=== PATIENT | female | born 1935 | race Caucasian/White ===

== ENCOUNTER 2017-01-18 12:00 | Inpatient (IN) | payer MEDICARE, OTHER ==
[~2017-01-18] VITALS: Ht 152.4 cm; Wt 110.7 kg
--- NOTE | ~2017-01-18 | HP ---
PATIENT'S NAME: ROSARIO DELGADO [facility] AGE: 81 Y [address] ROOM: [place] [id number] [facility] ADMIT DATE: 01/18/2017 History & Physical DISCHARGE DATE: FAMILY PHYSICIAN: JO COTO MD ATTENDING PHYSICIAN: Alexx EVANS DATE OF SERVICE: CHIEF COMPLAINT: Fever and cough. HISTORY OF PRESENT ILLNESS: The patient is an 81-year-old female with past medical history of type 2 diabetes mellitus, obesity, hypertension, diabetic neuropathy, and diastolic heart failure, who presents here from an Urgent Care with community-acquired pneumonia. The patient is currently living in an assisted living and has had some productive cough with yellow sputum and fever. At the urgent Care, the patient was found to have a temperature of 101, and a chest x-ray showing left lower lung field infiltrate. The patient was found to be somewhat confused and was sent here for further treatment. The patient reports that for the past few weeks, she has been feeling fatigued, short shortness of breath, productive cough, and fever and chills. The patient denies chest pain, nausea, vomiting, abdominal pain, diarrhea, skin lesions, tarry stool, and headache. The patient reports that she is somewhat compliant and reports that she misses a few of her medications here and there. The patient lives in assisted living at [place] and follows Dr. Coto as an outpatient. MEDICAL HISTORY: Diabetes mellitus, obesity, hypertension, diabetic neuropathy, diastolic heart failure. SURGICAL HISTORY: Hysterectomy. FAMILY HISTORY: Reports that father and mother of old age. SOCIAL HISTORY: Denies smoking. Denies use of alcohol. MEDICATION LIST: See MAR. REVIEW OF SYSTEMS: All systems have been reviewed and are negative except for what is mentioned PATIENT'S NAME: ROSARIO DELGADO [facility] AGE: 81 Y [address] ROOM: [address] [address] LOCATION: [facility]PCU ADMIT DATE: 01/18/2017 History & Physical DISCHARGE DATE: FAMILY PHYSICIAN: JO COTO MD ATTENDING PHYSICIAN: Alexx EVANS in the [facility]. PHYSICAL EXAMINATION: VITAL SIGNS: Temperature of 98.5, blood pressure of 109/59, pulse of 73, respiratory rate of 18, saturating 95% on 2 L. HEAD: Normocephalic, atraumatic. EYES: Sclerae non-icterus. EARS: No ear discharge. NOSE: No nasal discharge. THROAT: Oral mucosa moist. NECK: Mild JVD. CHEST: Mild bibasilar rales and mild wheezing. HEART: Regular rate and rhythm. No murmurs, rubs, or gallops. ABDOMEN: Soft, nontender, and nondistended. Bowel sounds present. EXTREMITIES: Lower extremity +2 pitting edema. NEUROLOGIC: Alert and oriented x1. The patient is not oriented to time. Motor and sensory grossly intact. SKIN: Warm to touch. LABORATORY DATA: Lactate 1.4. Blood glucose of 158. ProBNP of 1687. Troponin x1 negative. White blood cell count of 17.2. Initial creatinine is 1.9; BUN of 51; potassium of 6.1 with sodium of 134, repeat potassium 5.1. Hemoglobin A1c of 7.8. Urinalysis shows pyuria with white blood cell count of 5 to 10. Procalcitonin level is within normal limits. IMAGING DATA: Chest x-ray shows possible lower lung field infiltrate. EKG shows normal sinus rhythm. ST changes suspicious for ST-elevation VT on inferior leads. ASSESSMENT AND PLAN: The patient is an 81-year-old female with past medical history of diabetes type 2, obesity, diastolic heart failure, and hypertension, who presents here with community-acquired pneumonia with CURB of 3 with age, confusion, and BUN and hyperkalemia and EKG concerning for an ST-elevation myocardial infarction compared to last. 1. Community-acquired pneumonia. The patient is currently on azithromycin and ceftriaxone. Blood culture is pending. Urine and strep Legionella are pending. Sputum culture is pending. 2. Hyperkalemia, etiology most likely secondary to acute kidney injury. We PATIENT'S NAME: ROSARIO DELGADO [facility] AGE: 81 Y [address] ROOM: [id number] [place] [id number] [facility]: [facility] ADMIT DATE: 01/18/2017 History & Physical DISCHARGE DATE: FAMILY PHYSICIAN: JO COTO MD ATTENDING PHYSICIAN: Alexx EVANS are holding the patient's MITESH inhibitor. Potassium was 6.1 initially. EKG did not show any potassium-induced EKG changes. The patient got calcium gluconate x1, insulin, and D50. The patient received Lasix 40 mg IV. Repeat potassium is 5.1. We will continue with Lasix 40 mg b.i.d. Repeat renal function panel tomorrow morning. 3. Acute kidney injury. Etiology most likely cardiorenal secondary to decompensated diastolic heart failure. We will treat underlying etiology. 4. Decompensated diastolic heart failure. Etiology most likely secondary to noncompliance with medication and fluid restriction. The patient is currently on 40 mg IV b.i.d. The patient's symptoms somewhat improved after 1 dose of IV Lasix. With strict I's and O's, no salt diet, we will follow clinically. 5. EKG abnormality. EKG that was done when potassium was found to be elevated shows ST changes concerning for ST-elevation myocardial infarction. The patient denies any chest pain. Troponin x1 is negative. Case was disease discussed with Dr. Ireland. The old EKG and our current EKG were sent to Dr. Ireland. No suspicious for ST-elevation myocardial infarction at this point. We will follow the patient clinically with troponin and serial EKGs. The patient is currently asymptomatic and denies any chest pain. 6. Diabetes mellitus. We will continue home medication. 7. Obesity. Ongoing. MD JENNIFER GUDINO/ty /[id number] D: [id number] T: [id number] HISTORY & PHYSICAL
--- NOTE | ~2017-01-18 | DS ---
PATIENT'S NAME: ROSARIO DELGADO [facility] AGE: 81 Y [address] ROOM: [id number] [place], [place] [address] LOCATION: GPCU ADMIT DATE: 01/18/2017 Discharge Summary DISCHARGE DATE: 01/20/2017 FAMILY PHYSICIAN: Talha Biggs MD ATTENDING PHYSICIAN: Max Coffey PRIMARY DIAGNOSIS: 1. Left lower lobe pneumonia. OTHER PRIMARY DIAGNOSIS: 1. Acute hypoxic respiratory failure. CHRONIC DIAGNOSES: 1. Nocturnal hypoxemia. 2. Diabetes type 2. 3. Acute on chronic diastolic heart failure. 4. Anemia of chronic kidney disease. PRINCIPAL PROCEDURES: Done for the patient, none was indicated. LABORATORY DATA: On admission, lactic acid was 1.4. Cardiac enzymes, multiple sets were less than 0.040. Highest level of CPK obtained was 436. WBC on admission was 17.2, prior to discharge was 11.2; H and H on admission were 9.4 and 29.5, prior to discharge were 8.4 and 26.5; platelet on admission was 235, was stable throughout the hospital stay. On admission, the patient's creatinine was 1.9, prior to discharge was 1.8. Sodium on admission was 134, prior to discharge was 137; potassium on admission was 6.1, prior to discharge was 4.9; chloride on admission was 100, was stable throughout the hospital stay; bicarb on admission was 26, prior to discharge was 28; BUN on admission was 51, prior to discharge was stable at 51. Liver function tests were within normal limit. Magnesium was 2.1. Albumin was 2.9. Hemoglobin A1c 7.8. UA: Leukocytes 100, nitrite negative, wbc 5-10, bacteria few. Procalcitonin was 0.07. MICROBIOLOGY DATA: Blood cultures, no growth till discharge. Urine culture, no growth after one day. RADIOLOGY DATA: Chest x-ray is reported as patchy left basilar opacities, probably scar, no definitive pneumonia. HOSPITAL COURSE: For history of present illness, please take a look at the H and P, which was done by Dr. Santana. The patient was admitted to progressive care unit, was managed as a case of pneumonia, attributing to her acute hypoxic respiratory failure, but there was also concern for probable acute on chronic diastolic heart failure as well. So, given this, the patient was PATIENT'S NAME: ROSARIO DELGADO [facility] AGE: 81 Y [address] ROOM: [id number] [place], [place] [address] LOCATION: GPCU ADMIT DATE: 01/18/2017 Discharge Summary DISCHARGE DATE: 01/20/2017 FAMILY PHYSICIAN: Talha Biggs MD ATTENDING PHYSICIAN: Max Coffey managed as per the pneumonia order pathway. She was started on Rocephin and Zithromax, which she had for a total of 48 hours during her hospital stay. She was also diuresed. Her Lasix was switched from p.o. to IV same dose, and this was continued throughout her whole hospital stay. During her hospital stay, she did not have a fever. By the next day of the hospital stay, she was successfully weaned off oxygen. However, she did require oxygen at nighttime, which is due to her chronic nocturnal hypoxia. She did also get a Cardiology consult on the day of admission given her minimally elevated troponin. However, after Cardiology evaluated the patient, they recommended nothing to be done now as the patient had refused any cardiac workup in the past, so they signed off. On the day of discharge, the patient had physical therapy work around with the patient, and she did pretty okay, and her vital signs were stable, and so she was discharged back to the assisted living facility. DISCHARGE INSTRUCTIONS: The patient is to follow up with her PCP in the next 4 to 5 days. MEDICATIONS ON DISCHARGE: 1. Aspirin 81 mg p.o. daily. 2. Lipitor 20 mg p.o. q.h.s. 3. Coreg 6.25 mg p.o. twice daily. 4. Colace 100 mg p.o. twice daily. 5. Milk of magnesia 30 mL p.o. daily p.r.n. 6. Fentanyl 12 mcg patch every 72 hours. 7. Flonase 1 to 2 sprays to nose twice daily. 8. Lasix 40 mg p.o. twice daily. 9. Neurontin 300 mg p.o. daily. 10. Neurontin 600 mg p.o. twice daily. 11. Insulin lispro 0-8 units subcutaneous 3 times daily. 12. Insulin lispro 6 units subcutaneous 3 times daily. 13. Insulin detemir 35 units subcu q.h.s. 14. Synthroid 125 mcg p.o. daily. 15. Prilosec 20 mg p.o. daily. 16. MiraLAX 17 g p.o. daily. 17. Levaquin 750 mg p.o. q.48 hours 5 more doses to complete a total of 7 days of antibiotics. 18. Metformin 1 g p.o. twice daily. 19. Tramadol 50 mg p.o. q.8 hours p.r.n. 20. Tylenol 650 mg p.o. q.4 hours p.r.n. 21. Nystatin topical. 22. Artificial tears one drop 3 times daily. 23. Cofsils one lozenges p.o. p.r.n. 24. Imodium 4 mg p.o. one time daily p.r.n. 25. Robitussin 10 mL p.o. every 4 hours p.r.n. 26. DuoNeb 1 amp every 4 hours p.r.n. PATIENT'S NAME: ROSARIO DELGADO [facility] AGE: 81 Y [address] ROOM: [place] [address] [facility] ADMIT DATE: 01/18/2017 Discharge Summary DISCHARGE DATE: 01/20/2017 FAMILY PHYSICIAN: Talha Biggs MD ATTENDING PHYSICIAN: Max Coffey 27. Colace 100 mg p.o. daily. 28. Benzonatate 200 mg p.o. 3 times daily. 29. Zoloft 25 mg p.o. daily. MD ANTOINETTE MUELLER/ty /[id number] d: 01/20/172349 t: 01/21/17 165, DISCHARGE SUMMARY
[~2017-01-18 12:00] MED LIST: ARTIFICIAL TEAR15 ML OPHTH; ASPIR-LOW81 MG PO; ATORVASTATIN CA20 MG PO; COLACE100 MG PO; COREG6.25 MG PO; COUGH DROPS1 EAC1 PO; DURAGESIC 12 M12 MCG TRANS; GLUCOPHAGE1000 MG PO; GLUCOTROL XL2.5 MG PO; IMODIUM A-D2 MG PO; INVOKANA300 MG PO; LASIX20 MG PO; LASIX40 MG PO; LEVEMIR FL100 UNIT/1 SUB-Q; LEVOTHROID (S125 MCG PO; MILK OF MA400 MG/5 M PO; MYCOSTATIN CREA30 GM TOP; NEURONTIN300 MG PO; NORVASC10 MG PO; NOVOLOG100 UNIT/M SUB-Q; PRILOSEC20 MG PO; PRINIVIL (ZESTR20 MG PO; ROBITUSSIN COU118 ML PO; TYLENOL325 MG PO; ULTRAM50 MG PO
--- NOTE | 2017-01-18 14:02 | NUR ---
Pt is 81 y/o female admit for pneumonia for hospitalist. Pt alert and oriented x3. No allergies. REsides at [facility] living. Hx of DM, neuropathy in legs and feet,htn,sleep apnea-wears CPAP occas,gerd,frequent diarrhea,hypothyroid. Pt has audible wheezing. Came through ED. Desats when talking frequently but returns to upper 90's at rest. Pt pleasant and cooperative with cares.
[2017-01-18] MEDS ORDERED: FLONASE 50 MCG/16 GM NOSE (14:46)
[2017-01-18] MEDS ORDERED: DUONEB INH (14:59)
[2017-01-18] MEDS ORDERED: COZAAR50 MG PO (15:02)
[2017-01-18] MEDS ORDERED: MILK OF MA400 MG/5 M PO (15:04)
[2017-01-18] MEDS ORDERED: NEURONTIN300 MG PO (15:05)
[2017-01-18] MEDS ORDERED: MIRALAX PO527 GM/BOT PO (15:09)
[2017-01-18] MEDS ORDERED: BENZONATATE200 MG PO (15:13)
[2017-01-18] MEDS ORDERED: ZOLOFT50 MG PO (15:16)
[2017-01-18 16:34] LABS: BASOPHIL % 0.2 %; EOSINOPHIL # 0.1 K/uL (0.0-0.5); EOSINOPHIL % 0.5 %; HEMATOCRIT 29.5 % (30.0-46.0); HEMOGLOBIN 9.4 g/dL (10.0-15.0); IMMATURE GRANULOCYTE # 0.2 K/uL (0.0-0.3); IMMATURE GRANULOCYTE % 0.9 %; LYMPHOCYTE # 2.9 K/uL (0.8-4.0); LYMPHOCYTE % 16.7 %; MCH 29.5 pg (27.0-34.0); MCHC 31.9 gm/dL (32.0-36.5); MCV 92.5 fl (83.0-98.0); MONOCYTE # 1.6 K/uL (0.0-1.0); MONOCYTE % 9.3 %; MPV 10.7 fl (9.4-12.4); NEUTROPHIL # (ANC) 12.5 K/uL (1.8-7.8); NEUTROPHIL % 72.4 %; NRBC % 0 /100WBC (0-0.00); PLATELET COUNT 235 K/uL (150-450); RBC 3.19 M/uL (3.00-5.00); RDW-CV 13.6 % (11.9-14.6)
[2017-01-18 16:35] LABS: WBC 17.2 K/uL (4.0-11.0)
[2017-01-18 16:56] LABS: ALBUMIN 2.9 gm/dL (3.5-5.0); ANION GAP 14.1 (10.0-19.0); CALCIUM 8.2 mg/dL (8.5-10.5); CREATININE 1.9 mg/dL (0.5-1.1); POTASSIUM 6.1 mMol/L (3.7-5.1); TOTAL BILIRUBIN 0.7 mg/dL (0.0-1.5); TOTAL PROTEIN 6.9 g/dL (6.0-8.4)
--- NOTE | 2017-01-18 17:50 | NUR ---
Significant Event: ADMITTED TO PCU @ 1300. VSS. DENIES PAIN. UP WITH HEAVY 2 ASSIST, GB AND WALKER TO BS. IV TO RIGHT INNER FA SL'D. IV ANTIBIOTICS GIVEN. LUNGS CLEAR/DIM. LABS PENDING. CONTINUE TO MONITOR. Follow up:
[2017-01-18 23:10] LABS: ALBUMIN 2.6 gm/dL (3.5-5.0); ANION GAP 12.1 (10.0-19.0); CREATININE 1.9 mg/dL (0.5-1.1); PHOSPHORUS 3.3 mg/dL (2.5-4.9)
[2017-01-18 23:14] LABS: POTASSIUM 5.1 mMol/L (3.7-5.1)
[2017-01-18 23:43] LABS: CPK 436 IU/L (21-215)
[2017-01-19 01:01] LABS: BILIRUBIN URINE NEGATIVE (NEGATIVE); BLOOD URINE NEGATIVE /UL (NEGATIVE); COLOR URINE YELLOW (YELLOW); GLUCOSE URINE NEGATIVE (NEGATIVE); KETONE URINE NEGATIVE (NEGATIVE); LEUKOCYTES URINE 100 /UL (NEGATIVE); NITRITE URINE NEGATIVE (NEGATIVE); PROTEIN URINE NEGATIVE (NEGATIVE); TURBIDITY URINE CLEAR (CLEAR); UROBILINOGEN URINE NORMAL (NORMAL)
[2017-01-19 01:07] LABS: BACTERIA URINE FEW (NEGATIVE); RBC URINE NEGATIVE #/HPF (NEGATIVE); RENAL EPITH URINE 0-2 #/HPF (NEGATIVE); WBC CLUMPS URINE FEW (NEGATIVE)
[2017-01-19 03:20] LABS: BASOPHIL # 0.1 K/uL (0.0-0.2); BASOPHIL % 0.4 %; EOSINOPHIL # 0.1 K/uL (0.0-0.5); HEMATOCRIT 28.9 % (30.0-46.0); HEMOGLOBIN 9.1 g/dL (10.0-15.0); IMMATURE GRANULOCYTE # 0.1 K/uL (0.0-0.3); IMMATURE GRANULOCYTE % 0.9 %; LYMPHOCYTE # 2.9 K/uL (0.8-4.0); MCH 29.3 pg (27.0-34.0); MCHC 31.5 gm/dL (32.0-36.5); MCV 92.9 fl (83.0-98.0); MONOCYTE # 1.4 K/uL (0.0-1.0); MONOCYTE % 10.5 %; MPV 10.8 fl (9.4-12.4); NEUTROPHIL % 66.2 %; NRBC % 0 /100WBC (0-0.00); PLATELET COUNT 194 K/uL (150-450); RBC 3.11 M/uL (3.00-5.00); RDW-CV 13.8 % (11.9-14.6); WBC 13.6 K/uL (4.0-11.0)
[2017-01-19 03:38] LABS: ALBUMIN 2.6 gm/dL (3.5-5.0); ANION GAP 13.9 (10.0-19.0); CALCIUM 8.3 mg/dL (8.5-10.5); CREATININE 1.8 mg/dL (0.5-1.1); PHOSPHORUS 4.2 mg/dL (2.5-4.9); POTASSIUM 4.9 mMol/L (3.7-5.1)
[2017-01-19 03:39] LABS: CPK 399 IU/L (21-215)
--- NOTE | 2017-01-19 04:14 | NUR ---
Significant Event: A/0X3. RESTED IN BED ALL OF SHIFT. TURNED Q 2 HRS SIDE TO SIDE. AFEBRILE. VSS ON 1L. DENIES PAIN. IV TO R) FA SL. CONTINUE WITH IV ANTIBIOTICS. PATIENT K ON ADMISSION WAS 6.1. GAVE CALCIUM GLUCONATE IV X1 AND ALSO 10 UNITS REGULAR INSULIN WITH D50 IV. LAST CHECK OF K WAS 4.9. ALSO DID AN EKG THIS EVENING. EKG SHOWED ACUTE ST ELEVATION POSSIBLE RI. PATIENT DENIES CHEST PAIN. ENZYMES WERE FOLLOWED CPK 436, CK-MB 1.0 AND TROPONIN -. CARDIOLOGY CONSULTED. GOING TO DRAW ENZYMES X3 AND EKG THIS AM. GARCÍA PLACED AROUND 1949. HAD 550 OUT. GAVE LASIX IVP THIS EVENING. NO BM THIS SHIFT. Follow up: CONTINUE WITH PLAN OF CARE.
[2017-01-19 09:50] LABS: CPK 329 IU/L (21-215)
--- NOTE | 2017-01-19 15:56 | NUR ---
Reviewed chart, pt 2 person assist to get out of bed to chair. Lives at [facility]. Talked with patient, confirms she lives at [facility]. Says she is able to walk to dining room, dresses herself, gets assistance with bathing. I expressed concern over her weakness and that she can go to SNF and Medicare will cover skilled stay for her to get stronger before going back to [facility] and she refuses, saying she is going back to [facility] on discharge. Put note on chart for doc to order PT/OT for strengthening. Called Andie at [facility] [phone] and discussed the above. She reports pt does not look safe when ambulating with walker, walks hunched clear over it but despite their repeated cuing and working with PT/OT there, that is how she ambulates. Says her room is closest it can be to dining room and has the closest chair/table she can and that is as far as she ambulates there. Does wear loose pajama pants and shirts with no bra and able to dress herself. Incontinent of stool at [facility] due to diabetic meds and supposed to wear briefs but chooses not to when she helps herself or chooses to take them off when staff assist her so she does dribble down her legs and hurries to bathroom when she has to go. Has a rail on her bed and grab bars in the bathroom. Says 4 days prior to admit had a fall but no injury, and not unusual for her to fall because will be incontinent in bathroom and not call for assistance and try to clean it up herself and either slip or fall because of balance when bending over. Says she is stubborn and does what she wants to do despite their offers of assistance and instructing her they want to assist her. Report 24 hours prior to admit she did get weaker and staff was helping her out of bed to wheelchair, so that prompted them to take her in to Urgent Care. Told Andie pt intent is to come back to [facility] on discharge, so if they have concerns about taking her back, they will need to be the ones to tell her she needs a skilled stay before coming back to them, Andie voices understanding. Not sure when will be ready for discharge, if still here Sunday career agent will update them.
--- NOTE | 2017-01-19 16:46 | NUR ---
Significant Event: A/OX2, NOT TO TIME, FORGETFUL. VSS ON 1L PER NC. NO COMPLAINTS OF PAIN. PHYSICAL THERAPY STARTED TODAY ON PT. PT. UP WITH CHAIR WITH 1-2 ASSIST, BELT/WALKER. GARCÍA INTACT WITH 600ml UOP, NO BM. PT ON OWN CUSTOM SLIDING SCALE, ACCUCHECKS CONTINUE AC/HS, NO COVERAGE GIVEN EXCEPT 6 UNITS TID WITH MEALS. NEW POWER GLIDE IV TO LEFT UPPER ARM IS SL. CONTINUES ON QDAY ABX'S. LABS IN AM. Follow up: CONTINUE WITH POC.
[2017-01-19 16:58] LABS: CPK 293 IU/L (21-215)
--- NOTE | 2017-01-20 04:40 | NUR ---
Significant events: Pt A/O, forgetful at times. VSS. No complaints of pain. On RA-1L/NC. Hanson in place, good UOP. Slept most of shift. Up 2PA.
[2017-01-20 06:29] LABS: BASOPHIL % 0.4 %; EOSINOPHIL # 0.3 K/uL (0.0-0.5); HEMATOCRIT 26.5 % (30.0-46.0); HEMOGLOBIN 8.4 g/dL (10.0-15.0); IMMATURE GRANULOCYTE # 0.1 K/uL (0.0-0.3); IMMATURE GRANULOCYTE % 0.8 %; LYMPHOCYTE # 2.4 K/uL (0.8-4.0); LYMPHOCYTE % 21.2 %; MCH 29.3 pg (27.0-34.0); MCHC 31.7 gm/dL (32.0-36.5); MCV 92.3 fl (83.0-98.0); MONOCYTE % 8.6 %; MPV 10.8 fl (9.4-12.4); NEUTROPHIL # (ANC) 7.4 K/uL (1.8-7.8); NRBC % 0 /100WBC (0-0.00); PLATELET COUNT 191 K/uL (150-450); RBC 2.87 M/uL (3.00-5.00); RDW-CV 13.5 % (11.9-14.6); WBC 11.2 K/uL (4.0-11.0)
[2017-01-20 06:46] LABS: CALCIUM 8.1 mg/dL (8.5-10.5); CREATININE 1.8 mg/dL (0.5-1.1)
[2017-01-20 06:47] LABS: ANION GAP 11.9 (10.0-19.0); MAGNESIUM 2.1 mg/dL (1.8-2.6); POTASSIUM 4.9 mMol/L (3.7-5.1)
[2017-01-20] MEDS ORDERED: LEVAQUIN 750 M750 MG PO (15:14)
--- NOTE | 2017-01-20 16:54 | NUR ---
[facility] She was given instructions to follow up with Dr. Hassan in 4-5 days. Education given about Levaquin and pneumonia. Her midline and abdalla were both removed. Patient was then taken out to her son's vehicle via wheelchair.
== END 2017-01-20 16:00 | disposition other institution (70) | DRG 193 ==
LOC: GPCU 12:44
PROVIDERS: Hospitalist; ADMIT Internal Medicine
DX: J18.9 Pneumonia, unspecified organism (principal); I50.33 Acute on chronic diastolic (congestive) heart failure; N17.9 Acute kidney failure, unspecified; Z68.42 Body mass index [BMI] 45.0-49.9, adult; E11.9 Type 2 diabetes mellitus without complications; E66.01 Morbid (severe) obesity due to excess calories; E87.5 Hyperkalemia; Z91.19 Patient's noncompliance with other medical treatment and regimen; I12.9 Hypertensive chronic kidney disease with stage 1 through stage 4 chronic kidney disease, or unspecified chronic kidney disease; N18.9 Chronic kidney disease, unspecified; Z90.710 Acquired absence of both cervix and uterus
CPT/HCPCS: C1751; J0456; J0610; J0696; J1940; J7050

== ENCOUNTER 2017-02-05 14:37 | Inpatient (IN) | payer MEDICARE, OTHER ==
[~2017-02-05] VITALS: Ht 152.4 cm; Wt 106.8 kg
--- NOTE | ~2017-02-05 | ER ---
PATIENT'S NAME: ROSARIO DELGADO [facility] AGE: 81 Y [address] ROOM: [place] [address] LOCATION: GPCU ADMIT DATE: 02/05/2017 ER/Outpatient Report DISCHARGE DATE: FAMILY PHYSICIAN: JO COTO MD ATTENDING PHYSICIAN: FAB PERALTA CHIEF COMPLAINT: Generalized weakness and confusion. HISTORY OF PRESENT ILLNESS: The patient arrives by private vehicle. She came after a referral from Dr. Coto. She just does not feel very well at all. She states that there is some swelling in her legs and some numbness. She was hospitalized recently and did have a recent UTI, according to reports. She denies any acute urinary symptoms or fevers. No nausea or vomiting, but the patient is a poor historian. PAST MEDICAL HISTORY: Documented on the record and reviewed by me. SOCIAL HISTORY: Documented on the record and reviewed by me. MEDICATIONS: Documented on the record and reviewed by me. ALLERGIES: DOCUMENTED ON THE RECORD AND REVIEWED BY ME. REVIEW OF SYSTEMS: All systems were reviewed and negative except as noted in the HPI. PHYSICAL EXAMINATION: VITAL SIGNS: Blood pressure 115/63, pulse is 66, respiratory rate is 20, temperature 96.2, and SpO2 is 92% on room air. Pain 0/10. GENERAL: An age-appropriate female, in no obvious pain or distress, with ill appearance, sitting upright in a wheelchair, listless in the bed. NEUROLOGIC: The patient is awake. She is interactive. She has a slight speech impediment, but she is edentulous. She does follow commands in all extremities. No gross asymmetry on her exam. No obvious visual field deficits. No nystagmus on exam. The patient is weak and unable to complete rapid alternating movements, but appears to have symmetric strength. HEENT: Normocephalic, atraumatic. Eyes are PERRL. Oropharynx is clear. Edentulous, with no obvious abnormalities. NECK: Supple. Trachea is midline. PATIENT'S NAME: ROSARIO DELGADO [facility] AGE: 81 Y [address] ROOM: [place] [address] LOCATION: GPCU ADMIT DATE: 02/05/2017 ER/Outpatient Report DISCHARGE DATE: FAMILY PHYSICIAN: JO COTO MD ATTENDING PHYSICIAN: FAB PERALTA CHEST: Heart has a regular rate and rhythm with no murmurs. Lungs are clear to auscultation bilaterally except for the right base with a faint crackle. ABDOMEN: Soft, nontender, and nondistended. No rebound or guarding. BACK: Normal to inspection and palpation with no CVA tenderness. EXTREMITIES: Notable for marked edema to the knees bilaterally. No acute other concerns. SKIN: Warm, dry, and intact. No obvious rashes. No obvious breakdown. DIAGNOSTIC DATA: A head CT was obtained, concerning for subacute thalamic stroke. EKG was compared to previous EKG from 01/19/2017. Prior ST-elevation in II and depression in AVR are now resolved. There was no change in slight depression in the precordial leads. Overall, no significant changes otherwise. LABORATORY DATA: Labs: CBC: WBC is 11.8, hemoglobin 9.0, and platelets of 280. INR is 1.04. CMS: Potassium is 5.3. No other significant electrolyte abnormalities. BUN is 71, creatinine is 2.7, and GFR is 17. LFTs without any gross abnormalities. CK-MB is 4.6, troponin-I is below threshold, proBNP is 3699. Lactate is 2.4. Procalcitonin 0.05. Urinalysis not consistent with infection. Chest x-ray reviewed. No clear evidence of pneumonia or heart failure at this time. IMPRESSION: 1. Generalized weakness. 2. Possible subacute thalamic stroke. 3. Acute kidney injury and azotemia. 4. Hyperkalemia, without EKG changes. 5. Confusion. EMERGENCY DEPARTMENT COURSE: The patient was seen and evaluated. Her presentation is not consistent with an acute stroke. The poorly delineated onset today does not lend itself to tPA intervention at this time. She does have some evidence of other stressors and hypovolemia. In the setting of recent infection, I feel that is much more likely. She does have some mild evidence of heart failure with a slight pulmonary crackle, an elevated BNP, and marked peripheral edema. I will not administer aggressive fluids at this time. She is hemodynamically stable. I discussed the case with hospitalist on-call, and we will admit her to the Hospitalist Service for further evaluation and treatment of these issues. CHI BAINS MD PATIENT'S NAME: ROSARIO DELGADO [facility] AGE: 81 Y [address] ROOM: [place] [address] LOCATION: [facility] ADMIT DATE: 02/05/2017 ER/Outpatient Report DISCHARGE DATE: FAMILY PHYSICIAN: JO COTO MD ATTENDING PHYSICIAN: FAB PERALTA/ty /[id number] d: 02/06/17 124 t: 02/14/1712, OUTPATIENT REPORT
--- NOTE | ~2017-02-05 | DS ---
PATIENT'S NAME: ROSARIO DELGADO [facility] AGE: 81 Y [address] ROOM: [place] [address] LOCATION: GPCU ADMIT DATE: 02/05/2017 Discharge Summary DISCHARGE DATE: 02/09/2017 FAMILY PHYSICIAN: Talha Biggs MD ATTENDING PHYSICIAN: Kylah Cohen PRIMARY DIAGNOSES: 1. Acute on chronic diastolic congestive heart failure. 2. Chronic cor pulmonale. 3. Acute on chronic hypoxic respiratory failure. 4. Acute encephalopathy. 5. Acute kidney injury. 6. Chronic kidney disease, stage 3. 7. Diabetes mellitus type 2. 8. Morbid obesity. 9. Essential hypertension. 10. Moderate protein-calorie malnutrition. 11. Severe lumbar spinal stenosis with bilateral lower extremity weakness. 12. Hypothyroidism. 13. Anemia of chronic disease. 14. Hyperkalemia. 15. History of cerebrovascular accident. 16. Coronary artery disease. OPERATIONS/PROCEDURES: Echocardiogram was obtained on 02/06/2017 demonstrating an ejection fraction 65%-70%, moderate left ventricular hypertrophy, and pulmonary hypertension with an RVSP of 35 mmHg. MRI scan of the brain obtained on 02/06/2017, showed old lacunar infarcts in the thalamus and caudate nuclei, moderate to severe atrophy. Renal ultrasound obtained on 02/06/2017, demonstrated no obstruction. MRI scan of the L and S spine done on 02/07/2017, showed diffuse severe degenerative disk disease and varying degrees of moderate to severe spinal and foraminal stenosis. HISTORY OF ILLNESS/REASON FOR ADMISSION: Please refer to the H and P dictated on 02/05/[address] Cohen. HOSPITAL COURSE: The patient was admitted to the hospital as noted above with a presumptive diagnosis of acute on chronic diastolic congestive heart failure, acute hypoxic respiratory failure, acute encephalopathy, and bilateral leg weakness. She did have evaluation with cardiac ultrasound. She received some IV fluids initially, however, ultimately, it was felt that she was chronically volume overloaded. We transitioned to a diuretic regimen, and Nephrology provided assistance. PATIENT'S NAME: ROSARIO DELGADO [facility] AGE: 81 Y [address] ROOM: [place] [address] LOCATION: GPCU ADMIT DATE: 02/05/2017 Discharge Summary DISCHARGE DATE: 02/09/2017 FAMILY PHYSICIAN: Talha Biggs MD ATTENDING PHYSICIAN: Kylah Cohen She did show good response to diuresis. Her clinical current condition gradually improved. Fentanyl and gabapentin were stopped, and her sensorium also improved. She did receive physical therapy, occupational therapy for bilateral leg weakness. We did discuss long-term care planning, and it was felt she was unsafe to go back to [facility]. Case management did find placement for her at [facility] in order to receive ongoing physical therapy, occupational therapy. By the end of the fifth day of her hospital stay, it was felt she would be stable enough for discharge to the [facility] with plans for close clinical followup as well as ongoing physical therapy and occupational therapy. DISCHARGE INSTRUCTIONS: DIET: ADA 1800-calorie per day as tolerated. ACTIVITY: As tolerated. She will receive physical therapy, occupational therapy. Strict fall precautions. MEDICATIONS: 1. Aspirin 81 mg p.o. daily. 2. Atorvastatin 20 mg p.o. q.h.s. 3. Carvedilol 6.25 mg p.o. b.i.d. 4. Colace 100 mg p.o. b.i.d. 5. Flonase 1 to 2 sprays each nostril b.i.d. 6. Lasix 40 mg p.o. b.i.d. 7. Insulin NovoLog per sliding scale with meals. 8. Insulin detemir 35 units subcu q.h.s. 9. Levothyroxine 125 mcg p.o. daily. 10. Omeprazole 20 mg p.o. daily. 11. MiraLAX 17 g p.o. daily. 12. Sertraline 50 mg p.o. daily. 13. DuoNeb per nebulizer q.4 hours p.r.n. and 4 times a day schedule. 14. Acetaminophen 650 mg p.o. q.4 hours p.r.n. fever. 15. Tessalon Perles 200 mg p.o. t.i.d. p.r.n. cough. 16. Glucose tabs 4 g four tabs p.o. p.r.n. hypoglycemia. 17. Loperamide 1 tab p.o. q.i.d. p.r.n. loose stools. 18. Milk of magnesia 30 mL p.o. q.24 hours p.r.n. 19. Nystatin cream apply topically b.i.d. p.r.n. 20. Tramadol 50 mg p.o. q.8 hours p.r.n. 21. Artificial tears p.r.n. 22. Menthol herbal cough drops p.r.n. 23. Guaifenesin 10 mL p.o. q.4 hours p.r.n. cough. PATIENT'S NAME: ROSARIO DELGADO [facility] AGE: 81 Y [address] ROOM: [place] [address] [facility] AD[facility] DATE: 02/05/2017 Discharge Summary DISCHARGE DATE: 02/09/2017 FAMILY PHYSICIAN: Talha Biggs MD ATTENDING PHYSICIAN: Kylah Cohen 24. Lactobacillus 1 cap p.o. daily. 25. Metolazone 5 mg p.o. daily. FOLLOWUP: She will follow up with Dr. Marquez, Nephrology, in 2 weeks. She will follow up with Dr. Biggs, Internal Medicine, on . CONDITION ON DISCHARGE: Fair. Total time spent on discharge process 60 minutes. MD CRISTAL KEEN/ty /[id number] d: 02/10/17 0500 t: 02/22/17 1726, DISCHARGE SUMMARY
--- NOTE | ~2017-02-05 | ECHO ---
Transthoracic Echocardiography Report (TTE) Demographics Patient Name ROSARIO DELGADO Date of Study 02/06/2017 Patient Number [id number] Visit Number [id number] Date of 1935 Room Number G6301 Gender Female Number Age 81 year(s) Referring Noel Zarco Repairer [employer] Brittny Willis, Physician RT,RVT,RDCS Physician Interpreting Tayler Muñoz MD Jewelry Jobber Physician Supervising Ordering Noel Zarco MD/MLP Physician MD Nurse Stress P[employer] [address] Service Conclusions Contractility Score Summary Normal Left Ventricular contractility was noted. Summary The estimated left ventricular ejection fraction is 65-70%. The left atrium is mildly dilated by LA volume index measurement. Moderate concentric left ventricular hypertrophy. There is mild pulmonary hypertension. The pulmonary pressure (RVSP) is 35 mmHg. Procedure Type of Study TTE procedure:2D Echocardiogram, M-Mode, Doppler , Color Doppler. Procedure Date Date: 02/06/2017 Start: 09:37 AM Study Location: Inpatient Portable Technical Quality: Adequate visualization Indications:Acute kidney injury. Additional Indications:Elevated BNP Appropriate Use Criteria: 9 Patient Status: Routine HR: 55 bpm BP: 142/68 mmHg M-Mode/2D Measurements LV Diastolic Dimension: 5.29 cm LV Systolic Dimension: 3 cm LV Septum Diastolic: 1.17 cm LV Septum Systolic: 1.52 cm LV PW Diastolic: 1.12 cm LV PW Systolic: 1.66 cm Cardiac Output: 6.13 l/min AO Root Dimension: 2.8 cm LA Dimension: 3.8 cm EF Estimated: 70 % LA volume: 70 ml LVOT: 2 cm LVOT VTI: 35.5 cm LV Stroke volume: 111.47 ml Doppler Measurements AV Peak Velocity: 1.72 m/s MV Peak E-Wave: 1 m/s AV Peak Gradient: 11.83 mmHg MV Peak A-Wave: 0.97 m/s AV Mean Gradient: 5 mmHg MV E/A Ratio: 1.03 LVOT Peak Velocity: 1.4 m/s MV P1/2t: 87 msec TR Gradient:25 mmHg PV Peak Velocity: 1.13 m/s Estimated RAP:10 mmHg PV Peak Gradient: 5.11 mmHg Estimated RVSP: 35 mmHg Estimated PASP: 35 mmHg E' Septal Velocity: 0.06 m/s A' Septal Velocity: 0.1 m/s MV E/E' Ratio: 15.7 Findings Left Ventricle Moderate concentric left ventricular hypertrophy. Diastolic assessment reveals Grade II pseudonormal diastolic function . Right Ventricle Normal right ventricle structure and function. Left Atrium The left atrium is mildly dilated by LA volume index measurement. Right Atrium Normal right atrial size. Mitral Valve Normal mitral valve structure and function. Aortic Valve Normal aortic valve structure and function. Tricuspid Valve There is mild pulmonary hypertension. The pulmonary pressure (RVSP) is 35 mmHg. Pulmonic Valve Normal pulmonic valve structure and function. Pericardial Effusion No evidence of pericardial effusion. Miscellaneous Visualized portions of the aortic root and ascending aorta appear normal in size. Pleural Effusion No evidence of pleural effusion. Contractility Score LV regional wall motion:(0-Non visualized 1-Normal 2-Hypokinesis 3-Akinesis 4-Dyskinesis 5-Aneurysm) Signature dtt: Toni Lester (cardio) dtd: 02/06/17 0937 Physician Self Edit
--- NOTE | ~2017-02-05 | HP ---
PATIENT'S NAME: ROSARIO DELGADO [facility] AGE: 81 Y [address] ROOM: [address] [address] LOCATION: GPCU ADMIT DATE: 02/05/2017 History & Physical DISCHARGE DATE: FAMILY PHYSICIAN: JO COTO MD ATTENDING PHYSICIAN: FAB PERALTA DATE OF SERVICE: CHIEF COMPLAINT: "I cannot walk." HISTORY OF PRESENT ILLNESS: An 81-year-old lady who is a resident of the assisted living facility who was discharged from our facility not so long ago with pneumonia presented to the emergency department today complaining that she has not been able to walk for past couple of days now with a walker, which she uses at home at baseline. On further inquiry, she said she is little short of breath, but denied any headache, any fall, any trouble swallowing, any chest pain, any palpitations, any abdominal pain, any diarrhea, any constipation, but did endorse having leg swelling for a long time. On further inquiry, she denied having any PND or orthopnea. She denied having any history of any heart attack, but did endorse having history of stroke. PAST MEDICAL HISTORY: Significant for insulin-dependent diabetes mellitus, obesity, hypertension, diabetic neuropathy, diastolic heart failure with preserved ejection fraction, and chronic hypoxic respiratory failure with 2 L of oxygen at home at nighttime. MEDICATIONS: Medications are being reconciled right now. PAST SURGICAL HISTORY: Hysterectomy. FAMILY HISTORY: She reported that father and mother did not have any high blood pressure, strokes, or diabetes. SOCIAL HISTORY: Never a smoker. No alcohol. Lives in assisted living facility. REVIEW OF SYSTEMS: All other systems were reviewed and were negative except what is mentioned in the HPI. PATIENT'S NAME: ROSARIO DELGADO [facility] AGE: 81 Y [address] ROOM: [address] [address] LOCATION: GPCU ADMIT DATE: 02/05/2017 History & Physical DISCHARGE DATE: FAMILY PHYSICIAN: JO COTO MD ATTENDING PHYSICIAN: FAB PERALTA PHYSICAL EXAMINATION: VITAL SIGNS: 116/76, 72, 18, 99% on 2 L of oxygen, afebrile. GENERAL: In no acute distress. Alert and oriented x3. HEENT: Head: Atraumatic, normocephalic. Eyes: Nonicteric. No pallor. Oropharynx: Moist mucous membranes. CARDIOVASCULAR: S1, S2. No murmurs, gallops, or rubs. JVD difficult to assess due to anatomy. RESPIRATORY: No expiratory wheezes. No crepitations noted. Equal air entry bilaterally. ABDOMEN: Soft, nontender, nondistended. Bowel sounds present. EXTREMITIES: A +3 extremity edema noted. SKIN: No bruises or rashes noted. PSYCH: Normal affect, mood, and speech. MUSCULOSKELETAL: No muscle tenderness or joint tenderness noted. LABORATORY DATA: EKG done in the emergency department did show T-wave inversions in the V1, V2, and V3, which have been present on the previous EKGs as well. It looks like she does have some ST-T wave changes in inferior leads as well. Of note, she was admitted with hyperkalemia last time when she was treated and these changes were probably attributed to the effects of the hyperkalemia. Troponin enzymes were done in the hospital, which were negative. BNP was elevated at 3300. Chest x-ray was done, which did not show any acute infiltrate or any pulmonary edema. Lab work: Lactic acid 2.4. Accu-Chek 96. White count of 11, hemoglobin of 9, platelets 280. BUN and creatinine 71 and 2.7. Sodium 138, potassium 5.5, chloride 107, bicarb of 20, calcium 8.8, total protein 6.6, albumin 2.8, AST 10, ALT 10, alkaline phosphatase 83, and total bilirubin 0.3. UA was negative. Procalcitonin 0.05. CAT scan in the emergency department was done, which did show age-indeterminate thalamic infarct as well as old lacunar infarct as well. ASSESSMENT: 1. Acute kidney insufficiency on chronic kidney disease. 2. Heart failure with preserved ejection fraction. 3. Chronic hypoxic respiratory failure. 4. Insulin-dependent diabetes mellitus. 5. Normocytic anemia. 6. Hypothyroidism. 7. Depression. 8. Hyperkalemia. 9. Questionable history of coronary artery disease. 10. History of cerebrovascular accidents. PLAN: PATIENT'S NAME: ROSARIO DELGADO [facility] AGE: 81 Y [address] ROOM: [place] [address] [facility] ADMIT DATE: 02/05/2017 History & Physical DISCHARGE DATE: FAMILY PHYSICIAN: JO COTO MD ATTENDING PHYSICIAN: FAB PERALTA We are going to admit this patient to inpatient. It is rather difficult at this point to determine the etiology of the SUSIE. She does have lower extremity edema, but chest x-ray is negative for any pulmonary edema. She does carry a history of pulmonary hypertension. We will get the urine lytes, urinalysis, cultures, as well as we are going to get a kidney ultrasonography. We will obtain consultation from our Nephrology colleagues to manage that. Until then, we are going to carefully hydrate her with Ringer's lactate 500 mL at 150 mL and repeat the CBC as a BMP. Chronic hypoxic respiratory failure seems stable at this point. She is on 2 L of oxygen, which she usually wears at home at nighttime. We will continue the home dose of Levemir at home and put her on sliding scale insulin. Normocytic anemia, this anemia needs to be worked up at some point. We will obtain iron studies and take it from there. Hypothyroidism, continue the home dose of levothyroxine. Depression, continue the home dose of antidepressant. Hyperkalemia, we will hydrate her at this point, repeat the BMP, and see how potassium is responding. If it is not going in the right direction, we will start with the calcium gluconate and the hyperkalemia treatment pathway. DVT prophylaxis is with heparin. Given her thalamic strokes of age-indeterminate etiology, we will go ahead and get an MRI as well in the morning. FAB PERALTA MD MARIE/eloyl /[id number] D: 040 T: HISTORY & PHYSICAL
--- NOTE | ~2017-02-05 | CON ---
PATIENT'S NAME: ROSARIO DELGADO [facility] AGE: 81 Y [address] ROOM: [address] [address] LOCATION: GPCU ADMIT DATE: 02/05/2017 Consultation DISCHARGE DATE: FAMILY PHYSICIAN: JO COTO MD ATTENDING PHYSICIAN: FAB PERALTA DATE OF CONSULTATION: 02/05/2017 REFERRING PHYSICIAN: CHITO MARQUEZ This is a [facility] nephrology consultation. REFERRING FAMILY PHYSICIAN: JO COTO MD.: REASON FOR CONSULTATION: Acute kidney injury on chronic kidney disease stage 3. HISTORY OF PRESENT ILLNESS: This is an 81-year-old lady who is well known to Dr. Marquez, with a longstanding history of hypertension; diabetes; grade 1 diastolic heart failure; nocturnal hypoxia, on nighttime oxygen, who presented to the emergency room complaining of inability to walk. The patient reports she has had lower extremity weakness and has been utilizing a walker for the past couple days. She does also report an increase in shortness of breath, but denies any increase in dyspnea on exertion, chest pain, palpitations, PND, or orthopnea. She denied any trouble swallowing. The patient's creatinine on admission was 2.7. Per record from Dr. Marquez's last office note in December of 2016, the patient's baseline creatinine is 1.41. The patient was also noted to have microalbuminuria since September 2015. Therefore, due to history of acute kidney injury on chronic kidney disease stage 3 with baseline creatinine of 1.4 with rise of creatinine to 2.7 and GFR of 17, Dr. Marquez has been consulted to manage the patient's acute kidney injury while she is hospitalized. PAST MEDICAL HISTORY: As listed above including, 1. CKD stage 3. 2. Hypertension. 3. Diabetes. 4. Grade 1 diastolic heart failure. 5. Nocturnal hypoxia, on nighttime oxygen. 6. Diabetic peripheral neuropathy. 7. History of colon polyps. 8. History of carotid artery stenosis. 9. History of lower extremity edema. 10. History of hyperkalemia. 11. History of peptic ulcer disease. 12. History of lumbar radiculopathy. 13. History of morbid obesity. 14. History of obstructive sleep apnea, on CPAP therapy. 15. History of primary hypothyroidism. 16. History of tobacco abuse. PAST SURGICAL HISTORY: As listed above including, 1. Left knee corticosteroid injection. 2. History of hysterectomy. 3. Lithotripsy of the bladder. 4. Removal of a hematoma on the left side of the neck.PATIENT'S NAME: ROSARIO DELGADO [facility] AGE: 81 Y [address] ROOM: [place] [address] [facility] ADMIT DATE: 02/05/2017 Consultation DISCHARGE DATE: FAMILY PHYSICIAN: JO COTO MD ATTENDING PHYSICIAN: FAB PERALTA FAMILY HISTORY: Reviewed and is noncontributory. There is no history of renal disease or dialysis. SOCIAL HISTORY: The patient denies any history of alcohol use. She denies any history of drug use. She is a reported former smoker of smoking at least one pack per day for the last 30 years. She is retired and . She does live in the assisted living in [place]. REVIEW OF SYSTEMS: GENERAL: In general, a poor historian. Denies fever, chills, or night sweats. EYES: No double vision or blurred vision. NOSE: No epistaxis or rhinorrhea. MOUTH: No gingival bleeding. RESPIRATORY: Positive for shortness of breath. See HPI. CARDIOVASCULAR: See HPI. GASTROINTESTINAL: Denies nausea, vomiting, or diarrhea. MUSCULOSKELETAL: Positive for arthralgias, however, none are new. NEUROLOGICAL: She does have a history of diabetic neuropathy and does have bilateral lower extremity weakness. She does utilize a walker. HEMATOLOGICAL: Denies bruising or easy bleeding. IMMUNOLOGICAL: Denies recent infections. PSYCHIATRIC: Denies depression or anxiety. PHYSICAL EXAMINATION: VITAL SIGNS: Blood pressure is 142/67, pulse 62, respirations 18, temperature is 98.0, and saturations are 97% on 2 L nasal cannula. GENERAL: In general on exam, this is an obese elderly white female who appears her approximate stated age and is in no acute distress. HEENT: Her head is normocephalic and atraumatic. Eyes; pupils are equal and react briskly to light and accommodation. EOMs are intact. Nose; midline. Mouth; no gingival bleeding. Throat without lymphadenopathy or thyromegaly. NECK: No JVD noted. CARDIOVASCULAR: Regular rate and rhythm. No appreciable murmurs, rubs, or thrills. RESPIRATORY: Breath sounds are equal bilaterally. Good air entry. No wheezes or rales noted. ABDOMEN: Obese, nontender, nondistended. EXTREMITIES: Trace to 1+ lower extremity edema bilaterally with tenderness noted bilaterally in the lower extremities upon palpation. NEUROLOGICAL: Cranial nerves 2 through 12 are grossly intact. LABORATORY DATA: WBC is 11.8, hemoglobin 9.0, hematocrit 29.1, platelets are 280. Glucose is 83, BUN 71, creatinine 2.7, sodium 138, potassium 5.8, chloride 107, CO2 is 20, calcium 8.1. Albumin 2.8. INR 1.04. Urinalysis is pending. PATIENT'S NAME: ROSARIO DELGADO [facility] AGE: 81 Y [address] ROOM: [address] [place], [place] [address] LOCATION: GPCU ADMIT DATE: 02/05/2017 Consultation DISCHARGE DATE: FAMILY PHYSICIAN: JO COTO MD ATTENDING PHYSICIAN: FAB PERALTA ASSESSMENT AND PLAN: 1. Acute kidney injury on chronic kidney disease stage 3. This is likely prerenal etiology secondary to volume overload. I did discuss the patient's case with Dr. Marquez at the time of the exam, and he would like to increase the patient's diuretics due to her weight gain of approximately 4 kilograms since her office visit. We will start her on Bumex 1 mg IV x1 with metolazone 5 mg p.o. x1 today. We will strictly monitor her intake and output as well as her daily weights. She did have a renal ultrasound recently in the clinic and this was negative for obstruction. We will follow very closely with her I's and O's. 2. Nonproteinuric chronic kidney disease stage 3. This is presumably secondary to diabetic nephropathy. Her creatinine baseline is 1.4 with microalbuminuria. We will continue to diurese to get her back to her baseline. We will continue to avoid all nephrotoxins including NSAIDs and contrast agents at this time. 3. Acute metabolic encephalopathy. I will hold the patient's gabapentin as it is renally cleared due to her acute kidney injury. We will follow with great concern as there is an MRI pending for further evaluation of old lacunar infarcts noted on CT. 4. Hypertension. Blood pressures are controlled. Continue current medications. We will avoid all nephrotoxic agents including her home dose of losartan. We will avoid Lasix at this time and plan to restart this when she appears more euvolemic. 5. Diabetes. Sliding scale insulin. 6. Anemia. This is likely anemia of chronic disease. The patient's iron levels were monitored outpatient. We will continue to follow her hemoglobin while she is hospitalized. At this time, there is no need for iron or EPO therapy. This patient has been seen and assessed by Dr. Marquez. Her care is being conducted in consultation with Dr. Marquez as well as me. We will plan further recommendations as they are forthcoming. In the interim, the patient is going to receive IV diuretic therapy with strict I's and O's management. MIKE MISTRY DNP, HOSPITALIST PHYSICIAN FOR MERGED WITH [facility] ANTONIO MARQUEZ MD ENS/modl /[id number] d: 02/07/178 t: 02/15/17 1624, CONSULTATION REPORT
[~2017-02-05 14:37] MED LIST changes: +BENZONATATE200 MG PO; +COZAAR50 MG PO; +DUONEB INH; +FLONASE 50 MCG/16 GM NOSE; +LEVAQUIN 750 M750 MG PO; +MIRALAX PO527 GM/BOT PO; +ZOLOFT50 MG PO
[2017-02-05 15:08] LABS: BASOPHIL # 0.1 K/uL (0.0-0.2); BASOPHIL % 0.5 %; EOSINOPHIL # 0.3 K/uL (0.0-0.5); EOSINOPHIL % 2.7 %; HEMATOCRIT 29.1 % (30.0-46.0); IMMATURE GRANULOCYTE # 0.1 K/uL (0.0-0.3); IMMATURE GRANULOCYTE % 0.9 %; LYMPHOCYTE # 2.1 K/uL (0.8-4.0); LYMPHOCYTE % 17.9 %; MCHC 30.9 gm/dL (32.0-36.5); MCV 93.9 fl (83.0-98.0); MONOCYTE # 0.9 K/uL (0.0-1.0); MONOCYTE % 7.5 %; NEUTROPHIL # (ANC) 8.3 K/uL (1.8-7.8); NEUTROPHIL % 70.5 %; NRBC % 0 /100WBC (0-0.00); RDW-CV 13.8 % (11.9-14.6); WBC 11.8 K/uL (4.0-11.0)
[2017-02-05 15:10] LABS: PLATELET COUNT 280 K/uL (150-450)
[2017-02-05 15:17] LABS: INR - (THERAPEUTIC) 1.04 (0.92-1.07); PROTIME 10.9 SECONDS (9.8-11.4); PTT 33 SECONDS (25-32)
[2017-02-05 15:37] LABS: ALBUMIN 2.8 gm/dL (3.5-5.0); ALK PHOS 83 IU/L (33-138); AST 10 IU/L (10-40); CALCIUM 8.1 mg/dL (8.5-10.5); CHLORIDE 107 mMol/L (96-110); CO2 20 mMol/L (22-32); CREATININE 2.7 mg/dL (0.5-1.1); SODIUM 138 mMol/L (135-145); TOTAL PROTEIN 6.6 g/dL (6.0-8.4)
[2017-02-05 15:42] LABS: ALT < 10 IU/L (12-78); ANION GAP 16.8 (10.0-19.0); BLOOD UREA NITROGEN 71 mg/dL (6-24); ESTIMATED GFR (MDRD EQUATION) 17; POTASSIUM 5.8 mMol/L (3.7-5.1); TOTAL BILIRUBIN 0.3 mg/dL (0.0-1.5)
[2017-02-05 15:57] LABS: BILIRUBIN URINE NEGATIVE (NEGATIVE); BLOOD URINE NEGATIVE /UL (NEGATIVE); COLOR URINE YELLOW (YELLOW); GLUCOSE URINE NEGATIVE (NEGATIVE); KETONE URINE NEGATIVE (NEGATIVE); LEUKOCYTES URINE 25 /UL (NEGATIVE); NITRITE URINE NEGATIVE (NEGATIVE); PROTEIN URINE NEGATIVE (NEGATIVE); SPEC GRAVITY URINE 1.015 (1.003-1.035); TURBIDITY URINE CLEAR (CLEAR); UROBILINOGEN URINE NORMAL (NORMAL)
[2017-02-05 16:05] LABS: RBC URINE NEGATIVE #/HPF (NEGATIVE)
[2017-02-05 16:06] LABS: BACTERIA URINE FEW (NEGATIVE); MUCUS URINE 1+ (NEGATIVE)
[2017-02-05] MEDS ORDERED: DUONEB INH (20:17)
[2017-02-05] MEDS ORDERED: PROBIOTIC1 EAC1 PO (20:33)
[2017-02-05 21:20] LABS: CALCIUM 8.3 mg/dL (8.5-10.5); CREATININE 2.6 mg/dL (0.5-1.1)
[2017-02-05 21:49] LABS: ANION GAP 13.8 (10.0-19.0); POTASSIUM 5.8 mMol/L (3.7-5.1)
--- NOTE | 2017-02-05 23:55 | NUR ---
PATIENT RESIDES IN [facility] IN [place]. SHE HAD RECENTLY BEEN DISCHARGED AROUND 2 WEEKS AGO FOR PNEUMONIA. SINCE THAT TIME SHE HAS BEEN COMPLAINING OF WEAKNESS WHICH HAS PROGRESSED UNTIL 02/05 IN WHICH SHE WAS UNABLE TO ABMULATE. SHE WAS ALSO NOTED TO HAVE INCREASED CONFUSION PER STAFF AT [facility]. SHE WAS TAKEN TO ER VIA EMS. SHE ARRIVED ON PCU AT 1999 ON 2L 02, IV SL. SHE APPEARED IN NO ACUTE DISTRESS,HAD NO PAIN AND WAS A/0 X 4 WITH NO CONFUSION AT ALL, ANSWERED ALL QUESTIONS APPROPRIATELY. +2,+3 EDEMA NOTED THROUGHTOUT. SHE IS WEAK AND WAS SLID OVER TO THE BED (UNABLE TO AMBULATE). VSS ON 2L 02, AFEBRILE. HX: DIABETES, HTN, HYPERTHYRODISM, GERD, OSTEOARTHRITIS. NKA.
[2017-02-06 03:54] LABS: BASOPHIL # 0.1 K/uL (0.0-0.2); BASOPHIL % 0.5 %; EOSINOPHIL # 0.3 K/uL (0.0-0.5); EOSINOPHIL % 3.6 %; HEMATOCRIT 26.4 % (30.0-46.0); HEMOGLOBIN 8.2 g/dL (10.0-15.0); IMMATURE GRANULOCYTE # 0.1 K/uL (0.0-0.3); IMMATURE GRANULOCYTE % 0.9 %; LYMPHOCYTE # 2.3 K/uL (0.8-4.0); LYMPHOCYTE % 25.3 %; MCH 29.1 pg (27.0-34.0); MCHC 31.1 gm/dL (32.0-36.5); MCV 93.6 fl (83.0-98.0); MONOCYTE # 0.7 K/uL (0.0-1.0); MONOCYTE % 7.7 %; MPV 10.3 fl (9.4-12.4); NEUTROPHIL # (ANC) 5.7 K/uL (1.8-7.8); NRBC % 0 /100WBC (0-0.00); PLATELET COUNT 233 K/uL (150-450); RBC 2.82 M/uL (3.00-5.00); RDW-CV 13.6 % (11.9-14.6); WBC 9.1 K/uL (4.0-11.0)
[2017-02-06 04:12] LABS: ANION GAP 13.3 (10.0-19.0); CALCIUM 8.3 mg/dL (8.5-10.5); CREATININE 2.3 mg/dL (0.5-1.1); POTASSIUM 5.3 mMol/L (3.7-5.1)
--- NOTE | 2017-02-06 04:39 | NUR ---
Significant Event: PATIENT HAS BEEN A/0 X 4 WITH NO CONFUSION NOTED AT ALL DURING THE ENTIRE SHIFT. SHE REMAINS WEAK AND HAS BEEN UNABLE TO AMBULATE. VSS, 02 DOWN TO 0.5L, AFEBRILE. COOPERATIVE AND PLEASANT. HAS DENIED ALL PAIN, NO PAIN MEDS GIVEN. ECHO, RENAL CONSULT AND MRI OF BRAIN TODAY. Follow up:
--- NOTE | 2017-02-06 14:24 | NUR ---
Introduced myself and role of care management to pt. She is living at [facility] and she stated now she is just not able to walk. I asked about family and she is unsure if they will be stopping by. I will need to touch base with them and the NURSING HOME because she may need to go to a correction pending therapies.
--- NOTE | 2017-02-06 15:39 | NUR ---
Significant Event: A/Ox3. Forgetful at times. [id number]. P-50-60s. SR/SB with 1st degree AVB. Afebrile. Room air. Up with heavy 2 assist to lift at times. Working with PT/OT. Nephrology saw patient. Gabapentin discontined. Bumex 1 mg IVP BID ordered and zaroxyln POx1. Patient had abdalla inserted 1650ml of clear yellow urine out this shift. Urine electrolytes sent to lab. Fentynal patch d/c'd. Ultram given x1 for pain after breakfast for chonic pain in lower back/hips.
--- NOTE | 2017-02-07 04:40 | NUR ---
Significant Event: A/0 X 3, HEAVY 2 ASSIST TURN AND PIVOT TO CHAIR. VSS ON RA, AFEBRILE. CRACKLES REMAIN IN BILATERAL BASES. 1 MG IV BUMEX GIVEN. GARCÍA WITH 3250 ML OUTPUT DURING SHIFT. MRI OF BRAIN NO SIGNIFICANT FINDINGS. HAS DENIED PAIN, NO PAIN MEDS GIVEN AND HAS RESTED WELL THIS EVENING. Follow up:
[2017-02-07 05:55] LABS: BASOPHIL # 0.1 K/uL (0.0-0.2); BASOPHIL % 0.6 %; EOSINOPHIL # 0.4 K/uL (0.0-0.5); EOSINOPHIL % 3.7 %; HEMATOCRIT 27.5 % (30.0-46.0); HEMOGLOBIN 8.7 g/dL (10.0-15.0); IMMATURE GRANULOCYTE # 0.1 K/uL (0.0-0.3); IMMATURE GRANULOCYTE % 0.7 %; LYMPHOCYTE % 19.8 %; MCH 28.7 pg (27.0-34.0); MCHC 31.6 gm/dL (32.0-36.5); MCV 90.8 fl (83.0-98.0); MONOCYTE # 0.8 K/uL (0.0-1.0); MONOCYTE % 7.6 %; MPV 10.2 fl (9.4-12.4); NEUTROPHIL # (ANC) 6.8 K/uL (1.8-7.8); NEUTROPHIL % 67.6 %; NRBC % 0 /100WBC (0-0.00); PLATELET COUNT 267 K/uL (150-450); RBC 3.03 M/uL (3.00-5.00); RDW-CV 13.2 % (11.9-14.6); WBC 10.1 K/uL (4.0-11.0)
[2017-02-07 06:05] LABS: ALBUMIN 2.8 gm/dL (3.5-5.0); ANION GAP 13.2 (10.0-19.0); CALCIUM 8.7 mg/dL (8.5-10.5); CREATININE 1.6 mg/dL (0.5-1.1); PHOSPHORUS 3.1 mg/dL (2.5-4.9); POTASSIUM 5.2 mMol/L (3.7-5.1)
[2017-02-07 10:56] LABS: BILIRUBIN URINE NEGATIVE (NEGATIVE); BLOOD URINE NEGATIVE /UL (NEGATIVE); COLOR URINE YELLOW (YELLOW); GLUCOSE URINE NEGATIVE (NEGATIVE); KETONE URINE NEGATIVE (NEGATIVE); LEUKOCYTES URINE 100 /UL (NEGATIVE); NITRITE URINE NEGATIVE (NEGATIVE); PROTEIN URINE NEGATIVE (NEGATIVE); SPEC GRAVITY URINE 1.015 (1.003-1.035); TURBIDITY URINE 1+ (CLEAR); UROBILINOGEN URINE NORMAL (NORMAL)
[2017-02-07 11:06] LABS: BACTERIA URINE FEW (NEGATIVE); EPITHELIAL URINE NEGATIVE #/HPF (NEGATIVE); MUCUS URINE 1+ (NEGATIVE)
--- NOTE | 2017-02-07 15:00 | NUR ---
I did fax updates to [facility] and spoke with her and yes they plan on taking her back but they would like C with [facility] for pt/ot for the pt. I stated I have not seen the family and she states the son in [place] is mostly involved but very busy and a granddaughter works at [employer]. She states pt was borderline last time but she is pretty stubborn. WIll continue to follow.
--- NOTE | 2017-02-07 15:13 | NUR ---
Referral faxed to [facility].
--- NOTE | 2017-02-07 17:55 | NUR ---
Significant Event: VSS ON RA. TRAMADOL GIVEN THIS MORNING FOR BACK PAIN WITH RELIEF NOTED. LASIX PO 40MG BID RESTARTED AT HOME. LABS IN AM. 1700ML UOP FROM CATHETER, CLEAR YELLOW. AMBULATES 1-2PA WITH WALKER AND GAIT BELT. PT/OT. NO BM TODAY. MRI OF SPINE WITH RESULTS PENDING FOR LOWER LEG PAIN. DAILY STANDING WEIGHT. UA COLLECTED FOR SERIES OF TESTS. Follow up: PENDING LABS IN AM, BACK TO ASSISTED LIVING TOMORROW.
[2017-02-08 03:40] LABS: BASOPHIL # 0.1 K/uL (0.0-0.2); BASOPHIL % 0.5 %; EOSINOPHIL # 0.4 K/uL (0.0-0.5); EOSINOPHIL % 3.7 %; HEMOGLOBIN 9.3 g/dL (10.0-15.0); IMMATURE GRANULOCYTE # 0.1 K/uL (0.0-0.3); IMMATURE GRANULOCYTE % 0.9 %; LYMPHOCYTE # 2.9 K/uL (0.8-4.0); LYMPHOCYTE % 30.6 %; MCHC 32.1 gm/dL (32.0-36.5); MCV 90.3 fl (83.0-98.0); MONOCYTE # 0.7 K/uL (0.0-1.0); MONOCYTE % 7.4 %; NEUTROPHIL # (ANC) 5.3 K/uL (1.8-7.8); NEUTROPHIL % 56.9 %; NRBC % 0 /100WBC (0-0.00); PLATELET COUNT 265 K/uL (150-450); RBC 3.21 M/uL (3.00-5.00); RDW-CV 13.2 % (11.9-14.6); WBC 9.3 K/uL (4.0-11.0)
[2017-02-08 03:54] LABS: ALBUMIN 2.9 gm/dL (3.5-5.0); ANION GAP 12.4 (10.0-19.0); CALCIUM 8.6 mg/dL (8.5-10.5); CREATININE 1.6 mg/dL (0.5-1.1); PHOSPHORUS 3.9 mg/dL (2.5-4.9); POTASSIUM 4.4 mMol/L (3.7-5.1)
--- NOTE | 2017-02-08 05:23 | NUR ---
Significant Event: PATIENT A/O X 3, COOPERATIVE WITH CARES. VSS. RA. TRAMADOL X 1 FOR GENERALIZED PAIN AT BEDTIME. RELIEF NOTED. GARCÍA PATENT DRAINING CLEAR YELLOW URINE, 1900ML OUT THIS SHIFT. PATIENT 2ASSIST FROM CHAIR TO BED, TOLERATES FAIR. PATIENT RESTED WELL OVERNIGHT. Follow up: CONTINUE TO MONITOR PER PLAN OF CARE. POSSIBLY HOME TODAY.
--- NOTE | 2017-02-08 14:39 | NUR ---
I did talk with DR Nielson this am and he states she really needs a skilled facility and I do agree but pt is wanting to return back to [facility]. Dr Nielson stated he would call son and discuss. He did call me back and son does have some questions regarding insurance. I did call Alhaji and introduced myself and role of care management. I discussed dc plans with his mom and explained Andie at [facility] states they can take back they always do but md thinking skilled would be better and I agree. I explained she would go under her medicare skilled and have her supplemental. 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 He states she did have medicaid but it is gone due to land selling and he is continuing to work with this. I did tell him I tried talking with his mother about skilled and she wants to be in [place] but did not like the home and explained Medicare will cover, etc. He states he would want her in [place] at [facility] for first choice and he would talk with her. He states he is planning on paying the month of January for the [facility] today. I then called [facility] and spoke with the Cardiac Care Unit Nurse and they are full but to fax it anyway. I then called son back and explained this and discussed other options from [place] to [place]. He states he is wanting her to keep her md. He stated to start with the two S in [place] so maybe if a bed opens up she can go to [place]. I did call [facility] and she only has a semiprivate at [facility]. I then called son back and explained [facility] is looking and has a semi private and did tell him he could go visit or call them but I did tell him [facility] has beds or I can look at [facility] and she is able to keep her md. HE states [facility] would be closer so go ahead and make a referral there as well. I then called [facility] and faxed referral and yes she does have medicare skilled beds. WIll continue to follow.
--- NOTE | 2017-02-08 16:42 | NUR ---
I spoke with son Alhaji today in person with pt and he states they want to go with [facility] and he is going to go stop over there later in hopes they can get her up to [facility] in [place] if they have a bed or if does well back to [facility]. I did get a call from [facility] and they will accept pt tomorrow and will plan tent pecan picker around 1400. Will continue to follow.
--- NOTE | 2017-02-08 16:56 | NUR ---
Significant Event: VSS ON RA. TRAMADOL GIVEN AROUND LUNCH FOR BILATERAL LEG PAIN WITH RELIEF NOTED. AMBULATE WITH THERAPY, 1PA WITH WALKER AND GAIT BELT. RAQUEL JAMISON'D THIS MORNING WITH MULTIPLE VOIDS THIS AFTERNOON. NO BM BUT FLATUS PRESENT. PIV TO R) GT BRANCH'D. PLAN FOR SKILLED FACILITY TO TAKE TOMORROW. ZAROXOLYN INITIATED TODAY. Follow up: [facility] TOMORROW FOR STRENGTHENING. SON AND PATIENT AWARE AND ON BOARD WITH CARE MANAGEMENT. LABS IN AM.
--- NOTE | 2017-02-09 05:03 | NUR ---
Significant Event:A/Ox3. VSS. Afebrile. Placed on 2L/NC while sleeping to maintain O2 sats >90%. Transfers 1-2 assist with walker and gaitbelt. Up to the bedside commode multiple times with good UOP. Tramadol given x1 for generalized pain with relief noted. Follow up:Discharge to [facility] today, paperwork on the chart.
[2017-02-09 06:05] LABS: BASOPHIL # 0.1 K/uL (0.0-0.2); BASOPHIL % 0.6 %; EOSINOPHIL # 0.4 K/uL (0.0-0.5); EOSINOPHIL % 3.6 %; HEMATOCRIT 30.4 % (30.0-46.0); HEMOGLOBIN 9.6 g/dL (10.0-15.0); IMMATURE GRANULOCYTE # 0.1 K/uL (0.0-0.3); IMMATURE GRANULOCYTE % 0.8 %; LYMPHOCYTE # 2.5 K/uL (0.8-4.0); LYMPHOCYTE % 24.7 %; MCH 28.7 pg (27.0-34.0); MCHC 31.6 gm/dL (32.0-36.5); MCV 90.7 fl (83.0-98.0); MONOCYTE # 0.8 K/uL (0.0-1.0); MONOCYTE % 8.2 %; MPV 9.9 fl (9.4-12.4); NEUTROPHIL # (ANC) 6.3 K/uL (1.8-7.8); NEUTROPHIL % 62.1 %; NRBC % 0 /100WBC (0-0.00); PLATELET COUNT 270 K/uL (150-450); RBC 3.35 M/uL (3.00-5.00); RDW-CV 13.2 % (11.9-14.6); WBC 10.1 K/uL (4.0-11.0)
[2017-02-09 06:19] LABS: ANION GAP 13.3 (10.0-19.0); CALCIUM 8.6 mg/dL (8.5-10.5); CREATININE 1.6 mg/dL (0.5-1.1); PHOSPHORUS 4.2 mg/dL (2.5-4.9); POTASSIUM 4.3 mMol/L (3.7-5.1)
--- NOTE | 2017-02-09 09:55 | NUR ---
Significant Event:Alert and oriented x 3. Ambulates with 2 assist, leans forward and does not stand straight up, needs multiple cues to stand up, but does not stand up straight, needs cues to use walker correctly, but continues to lean forward. Up to bedside commode and up in chair for meals. NSR, SBP 160's, AM BP meds given. 1+ edema to marybeth lower extremities, feet elevated with pillow under heels at all times. O2 sats >90% on 2L/NC. Poor appetite this AM, able to take pills and drink Rafaela Mist. Last BM was 02/05/17, passing flatus, taking laxatives, no report of discomfort. Blood sugars per sliding scale have not needed treatment today. SL removed from R) forearm. Bruises to marybeth arms, redness to marybeth groins. Takes Tramadol at bedside for generalized pain.
--- NOTE | 2017-02-09 12:46 | NUR ---
I did call [facility] at [address] orders to [facility]. They told me to call Bill to set up time. I set up time for 1330 or could be earlier in case the other needs backed up. I called son Alhaji and explained plan 1330 unless they call and she can go earlier. He states his neice will be down to see her later today once the kids our out of school. I did update nurse Luci GARCIA.
== END 2017-02-09 11:31 | DRG 682 ==
LOC: GMED 14:37 → GPCU 18:32
PROVIDERS: Emergency Medicine; Family Medicine; Internal Medicine Nephrology; Nurse Practitioner; ADMIT Internal Medicine
DX: N17.9 Acute kidney failure, unspecified (principal); I50.33 Acute on chronic diastolic (congestive) heart failure; J96.21 Acute and chronic respiratory failure with hypoxia; G93.41 Metabolic encephalopathy; E44.0 Moderate protein-calorie malnutrition; Z68.42 Body mass index [BMI] 45.0-49.9, adult; I27.2 Other secondary pulmonary hypertension; E11.22 Type 2 diabetes mellitus with diabetic chronic kidney disease; I13.0 Hypertensive heart and chronic kidney disease with heart failure and stage 1 through stage 4 chronic kidney disease, or unspecified chronic kidney disease; E11.40 Type 2 diabetes mellitus with diabetic neuropathy, unspecified; I27.81 Cor pulmonale (chronic); N18.3 Chronic kidney disease, stage 3 (moderate); E66.01 Morbid (severe) obesity due to excess calories; E03.9 Hypothyroidism, unspecified; D63.1 Anemia in chronic kidney disease; E87.5 Hyperkalemia; I25.10 Atherosclerotic heart disease of native coronary artery without angina pectoris; Z86.73 Personal history of transient ischemic attack (TIA), and cerebral infarction without residual deficits; M48.06 Spinal stenosis, lumbar region; R53.1 Weakness; Z66 Do not resuscitate; Z79.4 Long term (current) use of insulin; Z79.82 Long term (current) use of aspirin; F32.9 Major depressive disorder, single episode, unspecified; G47.33 Obstructive sleep apnea (adult) (pediatric); Z86.010 Personal history of colon polyps; Z87.891 Personal history of nicotine dependence
CPT/HCPCS: J1644; J7120

== ENCOUNTER → 2017-02-28 | Outpatient (CLI) | payer MEDICARE, OTHER ==
[~2017-02-28] MED LIST changes: +PROBIOTIC1 EAC1 PO
== END ==
LOC: LGSMG 15:15
DX: I10 Essential (primary) hypertension (principal)